=== PATIENT | male | born 1960 | race African-American/Black ===

== ENCOUNTER 2021-06-23 12:31 | Emergency (ER) | payer OTHER ==
[~2021-06-23] VITALS: Ht 170.2 cm; Wt 104.0 kg
[2021-06-23] MEDS ORDERED: METF-414 PO (12:52)
[2021-06-23] MEDS ORDERED: AMLO10TA80 PO (12:56)
[2021-06-23] MEDS ORDERED: ATOR20TA65 PO (12:56)
[2021-06-23] MEDS ORDERED: HYDR12.54 PO (12:56)
[2021-06-23] MEDS ORDERED: ASPI-986 PO (12:56)
[2021-06-23] MEDS ORDERED: HUMALIN (12:56)
[2021-06-23] MEDS ORDERED: METO-385 PO (12:56)
[2021-06-23] MEDS ORDERED: LOSA50TA41 PO (12:56)
[2021-06-23] MEDS ORDERED: ALLO300T2 PO (12:56)
[2021-06-23] MEDS ORDERED: ACETAMINOPHEN 325MG TABLET PO ONE (14:45)
[2021-06-23] MEDS ORDERED: HYDROCHLOROTHIAZIDE 12.5MG CAPSULE PO ONE (14:45)
[2021-06-23 14:49] LABS: BASOPHILS % 0.5 % (0.0-2.0); EOSINOPHILS % 1.8 % (0.0-5.0); HEMATOCRIT. 49.3 % (42.0-52.0); HEMOGLOBIN. 16.1 g/dL (14.0-18.0); LYMPHOCYTES % 24.6 % (20.0-50.0); MEAN CORPUSCULAR HEMOGLOBIN 28.8 pg (28.0-32.0); MEAN CORPUSCULAR VOLUME 88.6 fL (80.0-94.0); MEAN PLATELET VOLUME 9.3 fl (7.4-10.4); MONOCYTES % 6.2 % (2.0-8.0); NEUTROPHILS % 66.9 % (40.0-76.0); PLATELET 287 x1000/uL (130-400); RED BLOOD CELL COUNT 5.57 mill/uL (4.7-6.1); RED CELL DISTRIBUTION WIDTH 15.9 % (11.6-14.6)
[2021-06-23 14:54] LABS: CHLORIDE 109 mEq/L (98-107)
[2021-06-23 14:57] LABS: ETHANOL BLOOD < 10 mg/dL
[2021-06-23 15:00] LABS: *AMPHETAMINES SCREEN URINE NEGATIVE (NEGATIVE); *BARBITURATES SCREEN URINE NEGATIVE (NEGATIVE); *BENZODIAZEPINES SCREEN URINE NEGATIVE (NEGATIVE); *COCAINE SCREEN URINE NEGATIVE (NEGATIVE); METHADONE URINE SCREEN NEGATIVE (NEGATIVE); OPIATES URINE SCREEN NEGATIVE (NEGATIVE)
[2021-06-23 15:01] LABS: CANNABINOID URINE SCREEN NEGATIVE (NEGATIVE); PHENCYCLIDINE URINE SCREEN NEGATIVE (NEGATIVE)
[2021-06-23 18:12] VITALS: BP 175/104
== END 2021-06-23 18:48 | disposition home or self-care (01) ==
LOC: ER 12:31
DX: I10 Essential (primary) hypertension (principal); R51.9 Headache, unspecified; E11.9 Type 2 diabetes mellitus without complications; E78.00 Pure hypercholesterolemia, unspecified; Z98.890 Other specified postprocedural states
CPT/HCPCS: 36415; 71045; 80053; 80305; 80320; 83880; 84484; 85025; 93005; 99285; G0480